=== PATIENT | female | born 1985 | race Native Hawaiian/Other Pacific Islander ===

== ENCOUNTER 2017-08-22 08:17 | Emergency (ER) | payer OTHER ==
[2016-07-07 15:07] VITALS: BMI 20.7
--- NOTE | 2017-08-22 11:04 | OBHP ---
Datetime: 08/22/2017 10:00 IP Adm Impression: Term, intrauterine IP Admit Plan: Discharge home Admit Comment, IP Provider: 31 yo ega 40.0 presents to the [facility] with lumbar and pelvic discomfo rt with slight vaginal discharge. 2 day history of pelvic pain, intermittent every 10-20 minutes. vag inal discharge: dark brown progressed to pink mucous discharge; last sexual activity 4 days ago. +FM Denies: LOF, CTX, cp/sob/n/v/dysuria pnc: Dr. Guadalupe obhx: 2012 sab at 7 wks surg: appendectomy 1993; endometrial surgery 2016 soc: denies smoking, alcohol, illicit drugs rx: PNV NKDA AAOX3 cardiac: s1s2, no murmurs lungs: clear bl, no wheezing abdo: gravid, nontender negative for CVT, calf tenderness bedside US: cephalic assessemnt: 31 yo IUP ega 40.00 -false labor - monitor: reactive -discharge home: stable -labor precautions given and reviewed -pt has f/u visit with Dr. Guadalupe tomorrow case dw Dr. Anayeli Li MD PGY1 The patient was seen with the resident I agree with the note Pelvic Type - PN: Adequate Extremities - PN: Normal Abdomen - PN: Normal Back - PN: Normal Breast - PN: Not Done Lungs - PN: Normal Heart - PN: Normal Thyroid - PN: Not Done Neurologic - PN: Normal HEENT - PN: Normal General - PN: Normal FHR - Baseline A Provider: 130 EGA AdmitDate IP: 40.0 Vital Signs Provider: Reviewed; Within Normal Limits IP Chief Complaint: Uterine contractions; Vaginal bleeding NICHD Variability Prov Fetus A: Moderate 6-25bpm NICHD Accel Fetus A IP Provider: 15X15 FHR Category Provider Fetus A: Category I NICHD Decel Fetus A IP Provider: None Dilatation, Provider: 0 Genitourinary Exam: Normal DTRs - PN: Not Done
[2017-08-22 15:36] VITALS: BP 128/81; PULSE 78; RESP 20; TEMP 97.9; O2SAT 99
== END 2017-08-22 09:55 | disposition home or self-care (01) ==
LOC: H.EROB2 08:17
DX: O47.1 False labor at or after 37 completed weeks of gestation (principal); O48.0 Post-term pregnancy; Z3A.40 40 weeks gestation of pregnancy

== ENCOUNTER 2017-08-23 08:51 | Inpatient (IN) | payer OTHER ==
[2017-08-23 09:54] VITALS: BMI 25.2
--- NOTE | 2017-08-23 09:55 | OBADHP ---
Datetime: 08/23/2017 09:53 Admit Comment, IP Provider: iup 40W C/O ctx pain since last night. + bloody show. +FM PMH: tone PSH: appy NKA POBGYNH: no STD A: IUP tat 40+w latnet phase of labor PLAN ADMIT TO L_D montior progress Pelvic Type - PN: Adequate Extremities - PN: Normal Abdomen - PN: Normal Back - PN: Normal Breast - PN: Normal Lungs - PN: Normal Heart - PN: Normal Thyroid - PN: Normal Neurologic - PN: Normal HEENT - PN: Normal General - PN: Normal FHR - Baseline A Provider: 130 Membranes, Provider: Intact Contraction Comments Provider: + Pool Provider: Negative IP Hx Assessment: The History has been Reviewed and is Current Vital Signs Provider: Reviewed; Within Normal Limits IP Chief Complaint: Uterine contractions NICHD Variability Prov Fetus A: Moderate 6-25bpm NICHD Accel Fetus A IP Provider: 15X15 FHR Category Provider Fetus A: Category I NICHD Decel Fetus A IP Provider: None Dilatation, Provider: 3-4 Effacement, Provider: 75 Station, Provider: -1 Genitourinary Exam: Normal DTRs - PN: Normal EGA AdmitDate IP: 40.1 IP Adm Impression: Term, intrauterine ; Active labor; Intact Membranes IP Admit Plan: Admit to unit; Initiate labor protocol
[2017-08-23 10:16] LABS: HEMOGLOBIN 13.3 g/dL (12.0-16.0); MEAN CELL VOLUME 97.9 fl (81.0-99.0); MEAN CORPUSCULAR HEMOGLOBIN 33.7 pg (27.0-31.0); MEAN CORPUSCULAR HGB CONC 34.4 g/dL (33.0-37.0); RBC 3.94 Mil/uL (3.80-5.20); WHITE BLOOD COUNT 9.2 K/uL (4.8-10.8)
[2017-08-23] MEDS ORDERED: Lactated Ringer's 1,000 ML IV SCH ×2 (12:15)
[2017-08-23] MEDS ORDERED: Fentanyl/Bupivacaine HCl 250 ML EPI ONE (13:58)
[2017-08-23] MEDS ORDERED: Phenylephrine 10 mg/ml Inj ONE (14:05)
[2017-08-23] MEDS ORDERED: ePHEDrine 50 mg/ml Inj ONE (14:06)
[2017-08-23] MEDS ORDERED: Bupivacaine HCl 0.25% PF (10 ml) Inj ONE (14:06)
--- NOTE | 2017-08-23 16:00 | OBPN ---
Datetime: 08/23/2017 15:59 IP Progress Impression: Reassuring heart rate IP Procedures: Artificial ROM IP Progress Plan: Continue present management; Augmentation Contraction Comments Provider: q3-5min Dilatation, Provider: 5 Effacement, Provider: 100 Station, Provider: 0 Datetime: 08/23/2017 13:40 FHR - Baseline A Provider: 1220s-130s IP Progress Note Comment: Patient requesting epidural. Contact anesthesia. Both maternal and being a nd well-being reassuring at this time. Plan to begin Pitocin augmentation after epidural placed Vital Signs Provider: Reviewed; Within Normal Limits NICHD Accel Fetus A IP Provider: 15X15 FHR Category Provider Fetus A: Category I NICHD Variability Prov Fetus A: Moderate 6-25bpm NICHD Decel Fetus A IP Provider: None Datetime: 08/23/2017 09:53 Pool Provider: Negative Membranes, Provider: Intact
--- NOTE | 2017-08-23 16:02 | OBPN ---
Datetime: 08/23/2017 15:59 Membranes, Provider: Ruptured Amniotic Fluid Color, Provider: Clear FHR - Baseline A Provider: 120s IP Progress Note Comment: AROM clear fluid. Both maternal well-being and well-being reassuring at this time. Continue current management. All patient questions answered. Vital Signs Provider: Reviewed; Within Normal Limits NICHD Accel Fetus A IP Provider: 15X15 FHR Category Provider Fetus A: Category I NICHD Variability Prov Fetus A: Moderate 6-25bpm NICHD Decel Fetus A IP Provider: None
--- NOTE | 2017-08-23 18:28 | OBPN ---
Datetime: 08/23/2017 18:10 IP Progress Impression: Normal progression of labor; Reassuring heart rate IP Procedures: Sterile Vag Exam IP Progress Plan: Continue present management; Augmentation Contraction Comments Provider: q3min FHR - Baseline A Provider: 120s IP Fetus A Comments: occasional variable decel IP Progress Note Comment: Labor progressing well. Both maternal well-being and well-being reas suring at this time. NICHD Accel Fetus A IP Provider: 15X15 NICHD Variability Prov Fetus A: Moderate 6-25bpm Dilatation, Provider: 9 Effacement, Provider: 100 Station, Provider: 0
[2017-08-23] MEDS ORDERED: Oxycodone/Acetaminophen 5/325 mg Tab PO PRN ×3 (20:29→22:03)
[2017-08-24 06:53] LABS: MEAN CELL VOLUME 98.4 fl (81.0-99.0); MEAN CORPUSCULAR HEMOGLOBIN 34.5 pg (27.0-31.0); MEAN CORPUSCULAR HGB CONC 35.1 g/dL (33.0-37.0); RBC 3.19 Mil/uL (3.80-5.20); WHITE BLOOD COUNT 10.2 K/uL (4.8-10.8)
--- NOTE | 2017-08-24 09:14 | OBDS ---
DELIVERY PERSONNEL Nurse Historiography Teacher Certified: annie Delivery Doctor: Oscar Prince MD Scrub Nurse: annie Customer Engineering Specialist: Rashmi Sewell RN Anesthesiologist: / Remelt Furnace Expediter: annie Resident: annie MATERNAL INFORMATION Delivery Anesthesia: Local; Epidural Medications in Delivery: Pitocin 20 units in 1000 cc LR Estimated Blood Loss (ml): 300 Placenta Cultured: No Maternal Complications: None RN Comments: with 2nd degree laceration tolerated well by pt.Delivery attended by . Provider Comments: Normal spontaneous vaginal delivery. Patient delivered viable infant female with Apgars of 9 and 9 at one and 5 minutes respectively. P lacenta delivered spontaneously. Laceration repaired, as above. Uterus firm and appropriately hemosta tic following delivery. Recent tolerated delivery and repair well. No complications. Estimated blood loss 300 mL LABOR SUMMARY EDC: 08/22/2017 00:00 No. Babies in Womb: 1 Attempted: No Labor Anesthesia: Epidural LABOR INFORMATION Reason for Induction: Not Applicable Onset of Labor: 08/23/2017 12:00 Complete Dilatation: 08/23/2017 18:30 Oxytocin: N/A Group B Beta Strep: Negative (Annotations: done on 08/03/17) Antibiotics # of Doses: na Antibiotics Time of Last Dose: na Steroids Given: None Reason Steroids Not Administered: Not Applicable Other Reason Not Administered: na MEMBRANES Membranes Rupture Method: Artificial Rupture of Membranes: 08/23/2017 15:55 Length of Rupture (hrs): 3.02 Amniotic Fluid Color: Clear Amniotic Fluid Amount: Scant Amniotic Fluid Odor: Normal STAGES OF LABOR Stage 1 hrs: 6 Stage 1 min: 30 Stage 2 hrs: 0 Stage 2 min: 26 Stage 3 hrs: 0 Stage 3 min: 4 Total Time in Labor hrs: 7 Total Time in Labor min: 0 VAGINAL DELIVERY Episiotomy: None Laceration Extension: Second Degree Laceration Type: Perineal Laceration Repair: Yes Laceration Repair Note: Second degree midline peroneal laceration. The area infiltrated with 1% lido angelito. Laceration repaired with 2. 0 Rapide without complication. Patient tolerated repair well. Initial Vag Sponge Count: 5 Final Vag Sponge Count: 5 Initial Vag Sharps Count: 4 Final Vag Sharps Count: 4 Sponge Count Correct: Yes Sharps Count Correct: Yes BABY A INFORMATION Delivery Date/Time: 08/23/2017 18:56 Method of Delivery: Vaginal Born in Route : No : N/A Forceps: N/A Vacuum Extraction: N/A Shoulder Dystocia : No SHOULDER DYSTOCIA BABY A Infant Delivery Date/Time: 08/23/2017 18:56 PRESENTATION/POSITION BABY A Presentation: Cephalic Breech Presentation: N/A PLACENTA INFORMATION BABY A Placenta Delivery Time : 08/23/2017 19:00 Placenta Method of Delivery: Spontaneous Placenta Status: Delivered SCORES BABY A Heart Rate 1 min: >100 bpm Resp Effort 1 min: Good Cry Reflex Irritability 1 min: Cough or Sneeze or Pulls Away Muscle Tone 1 min: Active Motion Color 1 min: Body [place], Extremities Blue Resuscitation Effort 1 min: Tactile Stimulation SCORE 1 MIN: 9 Heart Rate 5 min: >100 bpm Resp Effort 5 min: Good Cry Reflex Irritability 5 min: Cough or Sneeze or Pulls Away Muscle Tone 5 min: Active Motion Color 5 min: Body [place], Extremities Blue Resuscitation Effort 5 min: Tactile Stimulation SCORE 5 MIN: 9 INFORMATION BABY A Gestational Age at Delivery: 40.1 Gestational Status: Term Infant Outcome : Liveborn Condition : Stable Infant Sex: Female IDENTIFICATION/MEDS BABY A ID Band Number: [id number] ID Band Location: Left Leg; Left Arm Vitamin K Given : Not Given Erythromycin Given: Not Given WEIGHT/LENGTH BABY A Birthweight (gms): 3315 Weight (lb): 7 Weight (oz): 5 CORD INFORMATION BABY A No. Cord Vessels: 3 Nuchal Cord : N/A Cord Blood Taken: Yes Infant Suction: Mouth ASSESSMENT BABY A Infant Complications: None Physical Findings at Delivery: Within Normal Limits Physical Findings Other: had BM-meconium Respirations: Appears Normal Fios Line Installer/ALS Called : No Infant Care By: Miguel Casillas/Miguel Lin Transferred To: Remains with Mother
[2017-08-24] MEDS ORDERED: Benzocaine/Menthol SPRAY TOP PRN (10:29)
--- NOTE | 2017-08-24 12:55 | OBPPN ---
Datetime: 08/24/2017 12:52 PP Pain Prov: Within normal limits PP Nausea Prov: Denies PP Flatus Prov: Yes PP Breasts Prov: Normal PP Heart Prov: Normal PP Lungs Prov: Normal PP Abdomen/Uterus Prov: Normal PP Lochia Prov: Normal PP Vulva/Perineum Prov: Normal PP CVA Tenderness Prov: Normal PP Extremities Prov: Normal PP Comments Phys Exam Prov: Fundus firm under umbilicus PP Impression Prov: Normal progression PP Plan Prov: Continue present management PP Progress Note Prov: patient denies CP, no SOB, no N/V, tolerating PO diet, ambulating/voiding wel l, mild lochia, abdominal pain tolerable with meds A/P PPD #1 1. Continue orders 2. Encourage ambulation and 3. Motrin prn pain IP PP Procedures: None Vital Signs Provider PP: Reviewed; Within Normal Limits
--- NOTE | 2017-08-25 08:04 | OBDCSUM ---
Datetime: 08/25/2017 08:03 Discharged to, Provider: Home Follow up at, Provider: [facility] Disch Instr Activity: Normal activity; May Shower Disch Instr Diet: Regular Discharge Instructions, Provider: Routine instructions given Discharge Diagnosis, Provider: Term Delivered Discharge Time: 08/25/2017 08:03 Follow up in weeks, Provider: 6 weeks Contraception discussed, Prov: No Disch Activity Restrictions: No exercising; No lifting; No sexual activity; Nothing in vagina - Inte rcourse, tampons, douche
--- NOTE | 2017-08-25 08:04 | OBPPN ---
Datetime: 08/25/2017 08:00 PP Pain Prov: Within normal limits PP Abdomen/Uterus Prov: Normal PP Lochia Prov: Normal PP Progress Prov: Normal PP Impression Prov: Normal progression PP Plan Prov: Discharge PP Progress Note Prov: PPD 2 s/p , doing well, breast feeding Rx motrin given Discharge home today Vital Signs Provider PP: Reviewed; Within Normal Limits
[2017-08-25 21:03] VITALS: BP 110/61; PULSE 103; RESP 20; TEMP 97.9; O2SAT 97
== END 2017-08-25 14:35 | disposition home or self-care (01) | DRG 775 ==
LOC: H.EROB2 08:51 → H.EROB 08:53 → H.EROB2 09:55 → H.L&D 09:56 → H.OB/GYN 21:30
PROVIDERS: ADMIT Obstetrics & Gynecology; ATTEND Obstetrics & Gynecology
PROC: 10E0XZZ Delivery of Products of Conception, External Approach (ICD-10-PCS; principal; 2017-08-23)
PROC: 0KQM0ZZ Repair Perineum Muscle, Open Approach (ICD-10-PCS; 2017-08-23)
PROC: 4A1HXCZ Monitoring of Products of Conception, Cardiac Rate, External Approach (ICD-10-PCS; 2017-08-23)
DX: O77.0 Labor and delivery complicated by meconium in amniotic fluid (principal); O70.1 Second degree perineal laceration during delivery; Z37.0 Single live birth; Z3A.40 40 weeks gestation of pregnancy